=== PATIENT | male | born 1950 | race Caucasian/White ===

== ENCOUNTER 2017-12-25 15:32 | Emergency (ER) | payer MEDICARE, BC ==
[~2017-12-25] VITALS: Ht 182.9 cm; Wt 98.6 kg
[2017-12-25 15:43] VITALS: TEMP 98.4
[2017-12-25] MEDS ORDERED: LOTENSIN20 MG PO (16:07)
[2017-12-25] MEDS ORDERED: ASPIRIN E.C. 8181 MG PO (16:08)
[2017-12-25] MEDS ORDERED: ZOCOR 40MG40 MG PO (16:08)
[2017-12-25 16:26] LABS: BASO # 0.1 (0.0-0.2); BASO % 0.7 % (0.0-2.0); EOS # 0.2 (0.0-0.7); EOS % 2.3 % (0-4.0); GRAN # 5.3 (1.4-6.5); GRAN % 68.9 % (42.2-75.2); HEMATOCRIT 44.7 % (42.0-52.0); HEMOGLOBIN 15.2 g/dl (13.5-18.0); LYMPH # 1.3 (1.2-3.4); LYMPH % 17.3 % (20.0-51.0); MEAN CELL VOLUME 87 fl (80.0-100.0); MEAN CORPUSCULAR HEMOGLOBIN 30 pg (27.0-31.0); MEAN CORPUSCULAR HGB CONC 34 g/dl (33.0-37.0); MEAN PLATELET VOLUME 11.4 fl (7.4-10.4); MONO # 0.8 (0.1-0.6); MONO % 10.3 % (1.7-9.3); PLATELET COUNT 171 K/mm3 (130-400); RED BLOOD COUNT 5.12 M/mm3 (4.20-5.60); REDCELL DISTRIBUTION WIDTH-CV 14.2 % (11.5-14.5)
[2017-12-25 16:41] LABS: ALANINE AMINOTRANSFERASE 38 U/L (21-72); ALBUMIN 3.9 gm/dL (3.5-5.0); ALKALINE PHOSPHATASE 78 U/L (50-136); ANION GAP 13 mmol/L (7-16); AST,SGOT 36 U/L (15-37); BILIRUBIN,TOTAL 0.8 mg/dL (0.0-1.0); BLOOD UREA NITROGEN 20 mg/dL (9-20); CALCIUM 9.5 mg/dL (8.4-10.2); CARBON DIOXIDE 24 mmol/L (22-30); CHLORIDE 104 mmol/L (98-107); CREATININE, serum 1.06 mg/dL (0.66-1.25); GLUCOSE 97 mg/dL (74-106); POTASSIUM 4.2 mmol/L (3.4-5.0); SODIUM 141 mmol/L (137-145); TOTAL PROTEIN 7.6 gm/dL (6.4-8.2)
[2017-12-25 16:45] LABS: INR 1.1 (0.8-3.0); PROTHROMBIN TIME 12.7 SECONDS (9.7-12.8)
[2017-12-25] MEDS ORDERED: LOPRESSOR 225 MG/TAB PO (16:53)
[2017-12-25] MEDS ORDERED: ELIQUIS 5MG PO (16:53)
[2017-12-25 17:19] LABS: TROPONIN-I < 0.012 ng/mL (0.000-0.034)
[2017-12-25 17:55] VITALS: BP 126/82; PULSE 67
== END 2017-12-25 17:55 | disposition home or self-care (01) ==
LOC: COL.ER 15:32
PROVIDERS: Emergency Medicine
DX: I48.0 Paroxysmal atrial fibrillation (principal); I10 Essential (primary) hypertension; E78.5 Hyperlipidemia, unspecified; Z90.89 Acquired absence of other organs; Z79.82 Long term (current) use of aspirin

== ENCOUNTER 2019-05-19 06:57 | Outpatient (CLI) | payer MEDICARE, BC ==
[~2019-05-19] VITALS: Ht 182.9 cm; Wt 102.0 kg
[~2019-05-19 06:57] MED LIST: ASPIRIN E.C. 8181 MG PO; ELIQUIS 5MG PO; LOPRESSOR 225 MG/TAB PO; LOTENSIN20 MG PO; ZOCOR 40MG40 MG PO
[2019-05-19] MEDS ORDERED: HYDRODIURIL50 MG PO (07:28)
[2019-05-19] MEDS ORDERED: ZOCOR 10MG10 MG PO (07:29)
[2019-05-19 07:35] VITALS: BP 144/89; PULSE 72; TEMP 97.5
[2019-05-19 09:15] VITALS: BP 147/76; PULSE 78
--- NOTE | 2019-05-19 09:45 | NUR ---
pt up in room dressed, reviewed discharge inst. with pt, on site care and next appt in 1 week, pt will call office also. pt discharged amb. with equipment, dressing over chest in clean and dry
== END 2019-05-19 09:45 | disposition home or self-care (01) ==
LOC: COL.CAR 06:57
DX: I48.0 Paroxysmal atrial fibrillation (principal); Z88.0 Allergy status to penicillin
CPT/HCPCS: C1764

== ENCOUNTER 2020-05-15 07:58 | Outpatient (CLI) | payer MEDICARE, BC ==
[~2020-05-15] VITALS: Ht 183 cm; Wt 101.5 kg
[~2020-05-15 07:58] MED LIST changes: +HYDRODIURIL50 MG PO; +ZOCOR 10MG10 MG PO
[2020-05-15] MEDS ORDERED: PRAVACHOL 20MG20 MG PO (08:11)
[2020-05-15] MEDS ORDERED: ASPIRIN 81M81 MG/TA2 PO (08:11)
[2020-05-15 08:26] LABS: HEMATOCRIT 45.3 % (42.0-52.0); HEMOGLOBIN 15.2 g/dl (13.5-18.0); MEAN CELL VOLUME 88 fl (80.0-100.0); MEAN CORPUSCULAR HEMOGLOBIN 30 pg (27.0-31.0); MEAN CORPUSCULAR HGB CONC 34 g/dl (33.0-37.0); MEAN PLATELET VOLUME 10.9 fl (7.4-10.4); PLATELET COUNT 189 K/mm3 (130-400); RED BLOOD COUNT 5.15 M/mm3 (4.20-5.60); REDCELL DISTRIBUTION WIDTH-CV 14.2 % (11.5-14.5)
[2020-05-15 08:35] LABS: INR 1.6 (0.8-3.0); PROTHROMBIN TIME 18.4 SECONDS (9.7-12.8)
[2020-05-15 08:36] VITALS: BP 133/79; PULSE 62; TEMP 97.8
[2020-05-15 08:37] LABS: CALCIUM 9.3 mg/dL (8.4-10.2); CREATININE, serum 1.13 (0.66-1.25); POTASSIUM 3.8 mmol/L (3.4-5.0)
[2020-05-15 09:45] VITALS: BP 116/70; PULSE 60
[2020-05-15 10:00] VITALS: BP 130/75; PULSE 60
[2020-05-15 10:15] VITALS: BP 132/77; PULSE 56
[2020-05-15 10:30] VITALS: BP 129/77; PULSE 58
[2020-05-15 10:45] VITALS: BP 123/86; PULSE 58
== END 2020-05-15 11:00 | disposition home or self-care (01) ==
LOC: COL.RAD 07:58
PROVIDERS: Internal Medicine Cardiovascular Disease
DX: I48.0 Paroxysmal atrial fibrillation (principal)
CPT/HCPCS: J2704